=== PATIENT | male | born 1955 | race Native Hawaiian/Other Pacific Islander ===

== ENCOUNTER 2020-05-22 16:14 | Emergency (ER) | payer OTHER ==
[~2020-05-22] VITALS: Ht 185.4 cm; Wt 138.3 kg
[2020-05-22 16:16] VITALS: TEMP 97.9
[2020-05-22 16:52] LABS: POTASSIUM 4.4 mmol/L (3.6-5.2)
[2020-05-22 16:54] LABS: PLATELET COUNT 186 K/uL (142-355)
[2020-05-22 17:54] VITALS: BP 158/86
[2020-05-23] MEDS ORDERED: ASPIR-8181 MG PO (01:05)
[2020-05-23] MEDS ORDERED: KP FOLIC ACID1 MG PO (01:06)
[2020-05-23] MEDS ORDERED: DAILY VITE PO (01:06)
[2020-05-23] MEDS ORDERED: LISI20TA11 PO (01:07)
[2020-05-23] MEDS ORDERED: THIA100T8 PO (01:09)
[2020-05-23] MEDS ORDERED: TAMS0.4C PO (01:11)
[2020-05-23] MEDS ORDERED: CHOL4POW11 PO (01:14)
[2020-05-23] MEDS ORDERED: HYDROXYZINE HYD50 MG PO (01:15)
[2020-05-23] MEDS ORDERED: OXCARBAZEPIN300 MG PO (01:17)
[2020-05-23] MEDS ORDERED: SEROQUEL400 MG PO (01:18)
[2020-05-23] MEDS ORDERED: RISP1TAB PO (01:19)
[2020-05-23] MEDS ORDERED: BUDE1AER5 INH (01:21)
[2020-05-23] MEDS ORDERED: CREON6000 UNIT PO (01:22)
[2020-05-23] MEDS ORDERED: GABA300C2 PO (01:23)
[2020-05-23] MEDS ORDERED: BENZ1TAB43 PO (01:24)
[2020-05-23] MEDS ORDERED: MELATONIN10 MG PO (01:26)
[2020-05-23] MEDS ORDERED: QUETIAPINE400 MG PO (01:27)
[2020-05-23] MEDS ORDERED: IBU800 MG PO (01:29)
[2020-05-23] MEDS ORDERED: ALBUSOL INH (01:30)
[2020-05-23] MEDS ORDERED: ANTI-DIARRHEAL2 MG PO (01:32)
[2020-05-23] MEDS ORDERED: BISA10SU8 RE (01:36)
[2020-05-23] MEDS ORDERED: FLEET ENEMA RE (01:37)
== END 2020-05-22 18:40 | disposition other institution (70) ==
LOC: ED 16:14
PROVIDERS: Family Medicine
DX: R46.89 Other symptoms and signs involving appearance and behavior (principal); E87.1 Hypo-osmolality and hyponatremia; Z11.52 Encounter for screening for COVID-19; Z04.6 Encounter for general psychiatric examination, requested by authority
CPT/HCPCS: 80053; 85027; 87635; 93005; 96360; 99284; 99285; U0003